=== PATIENT | male | born 1985 | race Caucasian/White ===

== ENCOUNTER 2016-08-03 20:17 | Emergency (ER) | payer MEDICAID, OTHER ==
[2016-08-03] MEDS ORDERED: HYDROmorphONE/DILAUDID 1 MG/ML SYR IVP ONE (20:49)
[2016-08-03] MEDS ORDERED: NS 1,000 ML IV ONE ×3 (20:49→20:58)
[2016-08-03] MEDS ORDERED: ONDANSETRON 4 MG/2 ML VIAL IVP ONE (20:49)
[2016-08-03] MEDS ORDERED: KETOROLAC 30 MG/1 ML SDV IVP ONE (20:49)
--- NOTE | 2016-08-03 20:54 | EDPHY ---
H & P Stated Complaint: L flank pain, hematuria, dysuria several hours. Time Seen by Provider: 08/03/16 20:42 - Personal History Current Tetanus/Diphtheria Vaccine: Yes Tetanus Vaccine Date: 2016 - Medical/Surgical History Hx Asthma: Yes Hx Chronic Respiratory Disease: No Hx Diabetes: No Hx Cardiac Disease: No Hx Renal Disease: No Hx Cirrhosis: No Hx Alcoholism: No Hx HIV/AIDS: No Hx Splenectomy or Spleen Trauma: No Other PMH: Kidney stones, Bipolar 2, L inguinal hernia repair, appy, high cholestrol, cluster migraines, HTN, asthma, - Social History Smoking Status: Never smoked Constitutional: Initial Vital Signs Temperature (C) 36.7 C 08/03/16 20:24 Heart Rate 84 08/03/16 20:24 Respiratory Rate 16 08/03/16 20:24 Blood Pressure 142/97 H 08/03/16 20:24 O2 Sat (%) 97 08/03/16 20:24 O2 Delivery Mode Room Air Allergies/Adverse Reactions: No Known Allergies Allergy (Unverified 08/03/16 20:30) Home Medications: Medication Instructions Recorded Atorvastatin Calcium 08/03/16 Carvedilol 08/03/16 Lamotrigine 08/03/16 Latuda 08/03/16 Seroquel 08/03/16 Verapamil 08/03/16 oxyCODONE IR [Oxycodone Ir (*)] 5 - 10 mg PO Q6 PRN #20 tab 08/03/16 Medical Decision Making ED Course/Re-evaluation: CHIEF COMPLAINT: Left flank pain HISTORY OF PRESENT ILLNESS: This patient is a 30 year old male who presents to the Emergency Department complaining of left flank pain beginning this morning and increasing in severity over time. He describes his pain as severe, radiating to his lower left abdomen, with no identified exacerbating or alleviating factors. He reports associated hematuria and dysuria. He had a CT of his abdomen multiple years ago with incidental finding of nephrolithiasis. Surgical history includes appendectomy. REVIEW OF SYSTEMS: A 10 point review of systems was performed and is negative with the exception of the elements mentioned in the history of present illness. PHYSICAL EXAM: HR 84, BP 142/97, O2 Sat 97%, RR 16. Temp noted General Appearance: Alert, well hydrated, appropriate, and non-toxic appearing. Head: Atraumatic without scalp tenderness or obvious injury Eyes: Pupils equal, round, reactive to light and accommodation, EOMI, no trauma , no injection. Ears: Clear bilaterally, no perforation, normal landmarks Nose: Atraumatic, no rhinorrhea, clear. Throat: There is no erythema or exudates, no lesions, normal tonsils, mucus membranes moist. Neck: Supple, 2+ carotid upstroke, nontender, no lymphadenopathy. Respiratory: No retractions, no distress, no wheezes, and no accessory muscle use. Lungs are clear to auscultation bilaterally. Cardiovascular: Regular rate and rhythm, no murmurs, rubs, or gallops. Bilateral carotid, radial, dorsalis pedis, and posterior tibial pulses intact. Good capillary refill all extremities. Gastrointestinal: Abdomen is soft, nontender, non-distended, no masses, no rebound, no guarding, no peritoneal signs. Musculoskeletal: Normal active ROM of all extremities, atraumatic. Neurological: Alert, appropriate, and interactive. The patient has normal DTRs and non-focal cranial nerves, motor, sensory, and cerebellar exam. Skin: No rashes, good turgor, no nodules on palpation. Past medical history: Kidney stones, bipolar 2, high cholesterol, cluster migraines, hypertension, asthma. Past surgical history: Appendectomy, left inguinal hernia repair. Family history: Non-contributory. Social history: Medical student. DIAGNOSTICS/PROCEDURES/CRITICAL CARE TIME: IMAGING: Study: CT of the abdomen Indication: History of kidney stones, flank pain Results: CT scan of the abdomen was obtained. The results of the study are: 1. Mild obstructive uropathy secondary to a 3-mm stone near the left ureterovesical junction. 2. Bilateral nephrolithiasis. 3. Moderate stool in the proximal colon. 4. Fatty liver. 5. Additional findings, as above. The study was read by the radiologist, Dr. Miki Calhoun. I viewed the images myself on the PACS system. DIFFERENTIAL DIAGNOSIS: The differential diagnosis for the patient's flank pain included but was not limited to musculoskeletal causes, kidney stone, pyelonephritis, shingles, diverticulitis, appendicitis, and aortic aneurysm. MEDICAL DECISION MAKING: This patient presents with left flank pain radiating to his abdomen with reported hematuria and dysuria. His exam is benign. He reports prior incidental finding of kidney stones on the left on CT. Suspicion is high for kidney stone. I discussed with the patient the option of proceeding with US of the kidney or CT of the abdomen; given the choice, he opted into CT of the abdomen. IV established. 1mg IV Dilaudid, 4mg IV Zofran, and 30mg IV Toradol administered for pain. 2L IV NS administered. Labs obtained. Creatinine is elevated at 1.7. 2148: Imaging results reported to me by Dr. Calhoun. I discussed these results with the patient. He is feeling nauseated at present. Will continue to monitor here in the ED until symptoms improve. On reevaluation, the patient is feeling much better. He will be discharged home with medication to manage pain, instructions to use a strainer when he urinates and follow-up with a urologist within 7 days. He is agreeable to this and understands customary return precautions. - Data Points Laboratory Results: Laboratory Results 08/03/16 20:50 08/03/16 20:50 08/03/16 08/03/16 20:50 20:50 WBC 12.04 10^3/uL H 10^3/uL (3.80-9.50) RBC 4.97 10^6/uL 10^6/uL (4.40-6.38) Hgb 15.9 g/dL g/dL (13.7-17.5) Hct 43.9 % % (40.0-51.0) MCV 88.3 fL fL (81.5-99.8) MCH 32.0 pg pg (27.9-34.1) MCHC 36.2 g/dL g/dL (32.4-36.7) RDW 12.8 % % (11.5-15.2) Plt Count 291 10^3/uL 10^3/uL (150-400) MPV 9.1 fL fL (8.7-11.7) Neut % (Auto) 65.9 % % (39.3-74.2) Lymph % (Auto) 24.2 % % (15.0-45.0) [place] % (Auto) 7.0 % % (4.5-13.0) Eos % (Auto) 2.2 % % (0.6-7.6) Baso % (Auto) 0.4 % % (0.3-1.7) Nucleat RBC Rel Count 0.0 % % (0.0-0.2) Absolute Neuts (auto) 7.93 10^3/uL H 10^3/uL (1.70-6.50) Absolute Lymphs (auto) 2.91 10^3/uL 10^3/uL (1.00-3.00) Absolute Monos (auto) 0.84 10^3/uL H 10^3/uL (0.30-0.80) Absolute Eos (auto) 0.27 10^3/uL 10^3/uL (0.03-0.40) Absolute Basos (auto) 0.05 10^3/uL 10^3/uL (0.02-0.10) Absolute Nucleated RBC 0.00 10^3/uL 10^3/uL (0-0.01) Immature Gran % 0.3 % % (0.0-1.1) Immature Gran # 0.04 10^3/uL 10^3/uL (0.00-0.10) Sodium 140 mEq/L mEq/L (134-144) Potassium 4.2 mEq/L mEq/L (3.5-5.2) Chloride 104 mEq/L mEq/L (97-110) Carbon Dioxide 23 mEq/l mEq/l (22-31) Anion Gap 13 mEq/L mEq/L (8-16) BUN 15 mg/dL mg/dL (7-23) Creatinine 1.7 mg/dL H mg/dL (0.7-1.3) Estimated GFR 47 Glucose 108 mg/dL H mg/dL (70-100) Calcium 9.8 mg/dL mg/dL (8.5-10.4) Medications Given: Discontinued Medications Hydromorphone HCl (Dilaudid) 1 mg IVP EDNOW ONE Stop: 08/03/16 20:50 Last Admin: 08/03/16 20:59 Dose: 1 mg Sodium Chloride (Ns) 1,000 mls @ 0 mls/hr IV ONCE ONE PRN Reason: Wide Open Stop: 08/03/16 20:50 Last Admin: 08/03/16 20:58 Dose: 1,000 mls Sodium Chloride (Ns) 1,000 mls @ 0 mls/hr IV ONCE ONE PRN Reason: Wide Open Stop: 08/03/16 20:59 Last Admin: 08/03/16 21:10 Dose: Not Given Sodium Chloride (Ns) 1,000 mls @ 0 mls/hr IV ONCE ONE PRN Reason: Wide Open Stop: 08/03/16 20:59 Last Admin: 08/03/16 21:16 Dose: 1,000 mls Ketorolac Tromethamine (Toradol) 30 mg IVP EDNOW ONE Stop: 08/03/16 20:50 Last Admin: 08/03/16 20:59 Dose: 30 mg Ondansetron HCl (Zofran) 4 mg IVP EDNOW ONE Stop: 08/03/16 20:50 Last Admin: 08/03/16 20:58 Dose: 4 mg Departure - Departure Disposition: Home, Routine, Self-Care Clinical Impression: Kidney stone on left side Condition: Good Instructions: Kidney Stones (ED) Additional Instructions: 1. Followup with your urologist within one week. 2. Take Flomax as prescribed to help pass your kidney stone. 3. Take oxycodone as directed, as needed for pain. Use Zofran as directed, as needed for nausea. 4. Return to the emergency apartment for fever, severe pain, inability to urinate or other concerns. 5. Strain urine to try and catch the kidney stone and bring this to the urology appointment. Referrals: James Acevedo MD [Medical Doctor] - As per Instructions Report Scribed for: Tre Gomez Report Scribed by: Salima Lobo Date of Report: 08/03/16 Time of Report: 21:03
[2016-08-03 21:03] LABS: % IMMATURE GRANULYOCYTES 0.3 % (0.0-1.1); ABSOLUTE IMMATURE GRANULOCYTES 0.04 10^3/uL (0.00-0.10); ADD DIFF? NO; ADD MORPH? NO; ADD SCAN? NO; ATYPICAL LYMPHOCYTE FLAG 0 (0-99); FRAGMENT RBC FLAG 0 (0-99); HEMATOCRIT 43.9 % (40.0-51.0); HEMOGLOBIN 15.9 g/dL (13.7-17.5); LEFT SHIFT FLG 0 (0-99); LIPEMIA HEMOLYSIS FLAG 90 (0-99); MEAN CELL HEMOGLOBIN CONCENTR. 36.2 g/dL (32.4-36.7); MEAN CELL VOLUME 88.3 fL (81.5-99.8); MEAN PLATELET VOLUME 9.1 fL (8.7-11.7); PLATELET CLUMPS FLAG 0 (0-99); PLATELET COUNT 291 10^3/uL (150-400); RED BLOOD CELL COUNT 4.97 10^6/uL (4.40-6.38); RED CELL DISTRIBUTION WIDTH 12.8 % (11.5-15.2)
[2016-08-03 21:09] LABS: ANION GAP 13 mEq/L (8-16); CALCIUM 9.8 mg/dL (8.5-10.4); CARBON DIOXIDE 23 mEq/l (22-31); CHLORIDE 104 mEq/L (97-110); CREATININE 1.7 mg/dL (0.7-1.3); GLOMERULAR FILTRATION RATE 47; GLUCOSE 108 mg/dL (70-100); POTASSIUM 4.2 mEq/L (3.5-5.2); SODIUM 140 mEq/L (134-144)
[2016-08-03] MEDS ORDERED: ONDANSETRON 4 MG/2 ML VIAL ONE (21:36)
[2016-08-03] MEDS ORDERED: TAMSULOSIN HCL 0.4 MG CAP PO ONE (22:19)
[2016-08-03] MEDS ORDERED: ONDANSETRON 4MG PREPACK#2 BTL TAKEHOME ONE (22:20)
[2016-08-03] MEDS ORDERED: OXYCODONE/APAP 5/325MG PREPACK#4 BTL TAKEHOME ONE (22:20)
[2016-08-03] MEDS ORDERED: METOCLOPRAMIDE 10 MG/2 ML VIAL IVP ONE (22:49)
[2016-08-03] MEDS ORDERED: METOCLOPRAMIDE 10 MG/2 ML VIAL ONE (22:50)
[2016-08-03 23:05] VITALS: BP 129/82; PULSE 74; RESP 18; TEMP 98.4; O2SAT 94
== END 2016-08-03 23:04 | disposition home or self-care (01) ==
DX: N20.0 Calculus of kidney (principal); I10 Essential (primary) hypertension; J45.909 Unspecified asthma, uncomplicated
CPT/HCPCS: 96374; J1170; J1885; J2405; J2765

== ENCOUNTER → 2017-01-26 | Outpatient (CLI) | payer OTHER | LOC: FIMAGING 09:00 | PROVIDERS: ATTEND Physician Assistant | DX: K76.0 Fatty (change of) liver, not elsewhere classified (principal) ==

== ENCOUNTER → 2018-06-29 | Outpatient (CLI) | payer OTHER | LOC: FIMAGING 14:46 | DX: N20.0 Calculus of kidney (principal) ==